=== PATIENT | female | born 1935 | race Caucasian/White ===

== ENCOUNTER 2016-10-17 00:26 | Emergency (ER) | payer MEDICARE ==
[~2016-10-17] VITALS: Ht 162.6 cm; Wt 0.6 kg
[~2016-10-17 00:26] MED LIST: CITA20TA; [UNRECOGNIZED DRUG - CODE]; senna; tylenol #3
[2016-10-17 00:33] VITALS: BP 178/81; PULSE 77; RESP 17; O2SAT 98
--- NOTE | 2016-10-17 00:44 | ED.REPORT ---
HPI-Trauma Minor / Fall Date of Service October 17, 2016 ED Provider: Dr. Remberto Vivas M.D. An 80 year old female with a history of depression and breast cancer s/p right mastectomy presents to the ED accompanied by her family after a mechanical ground level fall onto her right arm just prior to arrival. The patient lightly hit her head on a cabinet but did not lose consciousness. She now reports right upper arm pain and right knee pain. The patient denies problems with ambulation , nausea, vomiting, headache, confusion, or other symptoms. Nursing Notes Stated Complaint: FELL ON RT ARM/PAIN Chief Complaint: Extremity Trauma Nursing Notes Reviewed: Yes Allergies: Coded Allergies: No Known Allergies (Verified , 11/07/15) Scheduled PRN Hydrocodone-Acetaminophen 5-325 mg (Hydrocodone-Acetaminophen 5-325 mg) 1 Each Tablet 1 TABLET PO Q4H PRN PRN For Pain Miscellaneous Medications ([tylenol #3]) ([senna]) Citalopram-Expunged Drug, Do Not Renew! (Citalopram-Expunged Drug, Do Not Renew! ) 20 Mg Tablet Dalteparin-Expunged Drug, Do Not Renew! (Fragmin-Expunged Drug, Do Not Renew!) 5 ,000 U/0.2 Disp.syrin General Time Seen by MD: 00:43 Chief Complaint Fall on outstretched hand Hx Obtained From: Patient Arrived By: Walk-in Onset Occurred: Just prior to arrival Symptom Duration: Since onset Caused by: Fall on ground Location: Arm right Knee right Quality: Painful Severity: Current: Moderate Severity: Maximum: Moderate Pertinent Negative: Relieved by nothing Context: Immunizations Unknown Recent Healthcare: No recent doctor visit Past Medical History Past Medical History Depression Right breast cancer Past Surgical History Appendectomy Hysterectomy Right mastectomy Tonsillectomy Left part hip Family History None reported Smoking History Never Smoker Social History Alcohol Use: 1-3 per day Other Social History: Good social support, Local resident Ambulatory Status Independent (Occasional cane use) Review of Systems Constitutional: Denies: Fever Respiratory: Denies: Non-productive cough, Shortness of breath Musculoskeletal: Reports: Extremity pain (Upper right arm), Joint pain (Right knee) Neurologic: Denies: Change LOC, Confusion, Headache, Problem walking Complete sys rev & neg: except as marked. GI: Denies: Nausea, Vomiting Physical Exam Initial Vital Signs Vital Signs (First) Date Time Temp Pulse Resp B/P Pulse Ox O2 Delivery O2 Flow Rate FiO2 10/17/16 00:33 36.1 77 17 178/81 98 10/17/16 02:54 Room Air Initial VS: Reviewed ENT: Conjunctiva normal, No scleral icterus Respiratory: No respiratory distress Skin: Warm, Dry Neurologic: Alert, Oriented Psychiatric: Mood/affect normal, Behavior normal General/Constitutional: Awake, Alert Head / Eyes: Atraumatic, Normocephalic Upper Extremity / MS: Neurologic intact, Vascular intact (Good distal pulses) Right Upper Arm: Positive: Tenderness present... (Over humerus) Lower Extremity / Pelvis / MS: Full range of motion Right Knee: Positive: Patella tender Trauma / Burn / Environmental: Positive: Abrasion (Right knee) Interpretation & Diagnostics X-Ray Interpretation Xray Interpretation: Proximal humerus fracture Study Performed: 2 View X-Ray Ordered: Humerus right Interpretation / Wet Read by: Wet read ED physician Xray Interpretation: Patellar fracture Study Performed: 3 View X-Ray Ordered: Knee right Re-Eval/Medical Decision Source of Hx: Old records Re-Evaluation/Progress : Time of Eval: 02:00 Patient Status: Condition improved Re-Evaluation/Progress Note: Discussed with patient x-ray results, diagnosis, and plan for discharge. Follow-up and return to the ER instructions given. Patient agrees with plan for care and all questions were addressed. Counseled Regarding: Diagnosis, Need for follow-up, When/why to return to ED Discharge & Departure Impression: Primary Impression: Humerus fracture Encounter type: initial encounter Fracture type: closed Laterality: right Additional Impression: Patellar fracture Encounter type: initial encounter Fracture type: closed Fracture alignment : nondisplaced Laterality: right Disposition: Home Discharge Condition All VS Reviewed: Yes Condition: Improved Patient Instructions: Arm Fracture in Adults (ED), Patellar Fracture (ED), Splint Care (ED) Additional Instructions: ED evaluation included interview exam and x-rays. You have a broken hurmeus at the shoulder and a broken kneecap. Wear a shoulder sling and knee immobilizer. Hydrocodone/apap as needed for pain- watch out for constipation on this med. Follow up with orthopedics in 3-5 days, call for an appointment. Referrals: Luis Eduardo Benjamin Attestation Portions of this note were transcribed by Doris Saab. I, Dr. Vivas, personally performed the history, physical exam, and medical decision-making; I reviewed and confirmed the accuracy of the information in the transcribed note. Signed by: Jhonatan Blankenship, 10/17/2016, 02:45 copies to: Luis Eduardo Benjamin DO; Ravi Gonzalez MD, Donald L MD October 17, 2016 00:43 DORIS SAAB October 17, 2016 00:48
[2016-10-17] MEDS ORDERED: _HYDROcodone/APAP 5-325 mg Tablet PO PRN (02:05)
[2016-10-17] MEDS ORDERED: HYDR-4003 PO (02:12)
[2016-10-17 02:54] VITALS: BP 160/78; PULSE 72; RESP 16; O2SAT 99
--- NOTE | 2016-10-17 09:09 | DRSVH ---
PROCEDURE: X-RAY RIGHT KNEE, THREE VIEWS ([id number]) INDICATIONS: fall arm and knee pain TECHNIQUE: 3 views of the knee were acquired. COMPARISON: None. FINDINGS: Bones: Minimally displaced lateral patellar fracture. Minimal hypertrophic changes noted throughout the knee. Soft tissues: Small joint effusion. No suspicious soft tissue calcifications. IMPRESSION: Minimally displaced lateral patellar fracture. Dictated by: Jose G JARRETT Interpreted: Jeanine Kyle MD on 10/17/2016 at 9:08 Transcribed by: MEENA on 10/17/2016 at 9:08 Approved by: Jeanine Kyle M.D. on 10/17/2016 at 17:02
--- NOTE | 2016-10-17 09:10 | DRSVH ---
PROCEDURE: X-RAY RIGHT HUMERUS, MINIMUM TWO VIEWS ([id number]) INDICATIONS: fall arm and knee pain TECHNIQUE: 2 views of the humerus were acquired. COMPARISON: None. FINDINGS: Bones: Mildly displaced fracture extending through the greater tuberosity of the proximal right humer us. Mild acromioclavicular glenohumeral joint degeneration. Soft tissues: No suspicious soft tissue calcifications. IMPRESSION: Proximal right humeral head fracture. Dictated by: Jose G JARRETT Interpreted: Jeanine Kyle MD on 10/17/2016 at 9:09 Transcribed by: MEENA on 10/17/2016 at 9:09 Approved by: Jeanine Kyle M.D. on 10/17/2016 at 17:02
== END 2016-10-17 02:55 | disposition home or self-care (01) ==
LOC: SED 00:26
DX: S42.291A Other displaced fracture of upper end of right humerus, initial encounter for closed fracture (principal); S82.091A Other fracture of right patella, initial encounter for closed fracture; W19.XXXA Unspecified fall, initial encounter; Y93.01 Activity, walking, marching and hiking; Y99.8 Other external cause status; Y92.019 Unspecified place in single-family (private) house as the place of occurrence of the external cause; Z85.3 Personal history of malignant neoplasm of breast; Z90.11 Acquired absence of right breast and nipple; Z90.710 Acquired absence of both cervix and uterus

== ENCOUNTER 2016-11-15 18:12 | Observation (INO) | payer MEDICARE ==
[~2016-11-15] VITALS: Ht 163.8 cm; Wt 60.2 kg
[~2016-11-15 18:12] MED LIST changes: +HYDR-4003 PO
[2016-11-15 18:17] VITALS: BP 155/88; PULSE 91; RESP 15; O2SAT 96
[2016-11-15 19:05] VITALS: BP 140/72; PULSE 93; RESP 21; O2SAT 96
[2016-11-15] MEDS ORDERED: ACET325T51 PO (19:10)
[2016-11-15] MEDS ORDERED: PARO30TA75 PO (19:10)
--- NOTE | 2016-11-15 19:19 | ED.REPORT ---
HPI-General Illness Date of Service November 15, 2016 ED Provider: Remberto Vivas MD 80 y/o female with a hx of anxiety and depression presents to the ED complaining of intermittent dizziness, onset 2 weeks ago. The pt states the dizziness is the worst when she sits up after lying down for a while. Associated sx include intermittent vertigo that lasts a few minutes, frontal headache and sudden "garbled speech" that lasted 20 minutes 10 days ago. She states she was talking to her son on the phone when she began mumbling and was using "wrong syllables". She has not experienced similar change in speech since. She denies slurred speech, facial droop, dysphagia and weakness. The pt states she fell 4 weeks ago and hit her head along with injuring her patella and right shoulder. She has been been experiencing dizziness since.Today, she says she feels significantly better with minimal dizziness. She has no hx of TIA. The pt denies taking Aspirin or any cholesterol medication. Code Status: Full treatment DNR Nursing Notes Stated Complaint: EPISODE OF FUMBLED SPEECH,DIZZINESS Chief Complaint: Neuro Symptoms/ Deficits Nursing Notes Reviewed: Yes Allergies: Coded Allergies: No Known Allergies (Verified , 11/07/15) Scheduled Acetaminophen/Diphenhydramine (Tylenol Pm Ex-Strength Caplet) 500 Mg-25 Mg Tablet 1 EACH PO HS Paroxetine (Paxil) 30 Mg Tablet 30 MG PO QAM Scheduled PRN Acetaminophen (Acetaminophen) 325 Mg Tablet 650 MG PO Q4H PRN PRN For Pain Hydrocodone-Acetaminophen 5-325 mg (Hydrocodone-Acetaminophen 5-325 mg) 1 Each Tablet 1 TABLET PO HS PRN PRN For Pain General Time Seen by MD: 19:17 Chief Complaint Dizziness Hx Obtained From: Patient Arrived By: Walk-in Sudden in Onset?: No Onset Occurred: More than a week ago... (2 weeks) Context of Onset: Other (Fall 4 weeks ago) Symptom Duration: Intermittent Location: : Head Quality: Painful Severity: Current: Mild Severity: Maximum: Mild Recent Healthcare: Recent doctor visit Similar Sx Previous: No Past Medical History Past Medical History Anxiety Depression Right breast cancer x2 Chronic right shoulder pain Past Surgical History Appendectomy Hysterectomy Right mastectomy Tonsillectomy Left part hip Family History None reported Smoking History Never Smoker Social History Alcohol Use: 1-3 per day Other Social History: Good social support, Local resident Ambulatory Status Independent Review of Systems Reports: intermittent vertigo Reports: 20 minutes of garbled speech 10 days ago Full Review of Systems Neurologic: Reports: Dizziness, Headache Complete sys rev & neg: except as marked. Physical Exam Vital Signs Vital Signs Date Time Temp Pulse Resp B/P Pulse Ox O2 Delivery O2 Flow Rate FiO2 11/15/16 19:05 93 21 140/72 96 Room Air 11/15/16 18:17 36.3 91 15 155/88 96 Room Air Initial VS: Reviewed Head / Eyes: Atraumatic, Normocephalic Neck: Full range of motion Skin: Warm, Dry, No cyanosis Neurologic: Alert, Oriented, Nonfocal General/Constitutional: Awake, Alert, No acute distress, Cooperative Head / Eyes: Atraumatic, Normocephalic, PERRL, EOMI Neck: Atraumatic, Full range of motion Neck Vascular: Positive: Carotid bruit L Respiratory / Chest: Atraumatic, Breath sounds NL, Breath sounds = bilat, No respiratory distress, No rales, No rhonchi, No wheezing Cardiovascular: Heart rate NL, Regular rhythm, Heart sounds NL, No gallop, No murmurs, No rubs Abdomen: Atraumatic, Soft, Non-tender, BS normoactive Upper Extremities Upper Extremity / MS: No deformity, Neurologic intact, Vascular intact Right Shoulder: Positive: Ecchymosis present (Right shoulder) Lower Extremity / Pelvis / MS: Atraumatic, Full range of motion, No deformity, Neurologic intact, Vascular intact Knee brace on right knee. Neurologic: Oriented X3, Speech NL, No motor deficits, No sensory deficits Cerebellar Dysfunction: Negative: Ataxia central, Ataxia peripheral No facial droop. Moving extremities spontaneously and with full power. Interpretation & Diagnostics Lab Results Interpretation Result Diagram: 11/15/16193411/15/161934 Test 11/15/16 19:35 11/15/16 20:06 White Blood Count 6.1th/mm3 (3.8-10.1) Red Blood Count 3.84mil/mm3 (3.90-5.20) Hemoglobin 11.5g/dL (12.0-15.6) Hematocrit 36.0% (35.0-46.0) Mean Corpuscular Volume 93.8fL (81-100) Mean Corpuscular Hemoglobin 29.9pg (27.0-35.0) Mean Corpuscular Hemoglobin Concent 31.9% (32.0-37.0) Red Cell Distribution Width 13.6% (12.3-15.4) Platelet Count 265bil/L (150-400) Neutrophils (%) (Auto) 68.9% (40-74) Lymphocytes (%) (Auto) 19.1% (14-46) Monocytes (%) (Auto) 8.6% (4-12) Eosinophils (%) (Auto) 3.1% (0-5) Basophils (%) (Auto) 0.3% (0-3) Sodium Level 140mEq/L (134-144) Potassium Level 3.9mEq/L (3.5-5.2) Chloride Level 99mEq/L (97-108) Carbon Dioxide Level 25mmol/L (18-29) Blood Urea Nitrogen 18mg/dL (8-27) Creatinine 0.64mg/dL (0.57-1.00) Estimat Glomerular Filtration Rate 127mL/min (>59) Glucose Level 113mg/dL (60-99) Calcium Level 9.3mg/dL (8.5-10.1) Total Bilirubin 0.2mg/dL (0.0-1.2) Aspartate Amino Transf (AST/SGOT) 21U/L (0-50) Alanine Aminotransferase (ALT/SGPT) 11U/L (0-32) Alkaline Phosphatase 104U/L (25-165) Total Protein 6.8g/dL (6.4-8.4) Albumin 3.4g/dL (3.4-5.0) Hold Truong Top Tube Received (Received) Urine Color Yellow (YELLOW) Urine Appearance Clear (CLEAR,HAZY) Urine pH 5.0 (5.0-8.0) Urine Specific [place] 1.028 (1.003-1.035) Urine Protein Tracemg/dL (NEG,TRACE) Urine Glucose (UA) Negativemg/dL (NEGATIVE) Urine Ketones Negativemg/dL (NEGATIVE) Urine Occult Blood Negative (NEGATIVE) Urine Nitrite Negative (NEGATIVE) Urine Bilirubin Negative (NEGATIVE) Urine Urobilinogen Normalmg/dL (NORMAL) Urine Leukocyte Esterase Trace (NEGATIVE) Urine RBC 0-2/hpf (0-2) Urine WBC 6-10/hpf (0-5) Urine Epithelial Cells Few/hpf (NONE-MOD) Urine Crystals Oxalic acid crystals (NONE Urine Bacteria Few/hpf (NONE-FEW) Urine Hyaline Casts Occasional/lpf (NONE) Urine Granular Casts None seen (NONE SEEN) Urine Waxy Casts None seen (NONE SEEN) Urine Red Blood Cell Casts None seen (NONE SEEN) Urine White Blood Cell Casts None seen (NONE SEEN) Urine Mucus Present (None Seen) Urine Trichomonas None seen (NONE SEEN) Urine Yeast None (NONE SEEN) Urinalysis Comment None Urine Culture Reflexed Indicated ECG Interpretation ECG Interpretation: Normal sinus rhtyhm. Rate 92. Left axis deviation Time: 22:03 Interpreted by: ED physician CT Head Interpretation IMPRESSION: No acute intracranial disease process. Dictated by: Adela Ling MD, PhD on 11/15/2016 at 19:47 Approved by: Adela Ling MD, PhD on 11/15/2016 at 19:50 Study: Head CT no contrast Interpretation / Wet Read by: Interpret - Radiologist Re-Eval/Medical Decision Med Decision/Clinical Course 80-year-old female presenting at the recommendation of her primary care provider 10 days after experiencing what sounds likely to have been a TIA. She is now neurologically intact and is noted to have a left-sided carotid bruit. The patient was given aspirin, noncontrast head CT is negative, will be admitted to the hospitalist service for TIA evaluation. Also had a complaint of vertigo, this is now resolved and history suggests benign paroxysmal positional vertigo Code Status: Full treatment DNR Time of Eval: 21:35 Patient Status: Condition improved Re-Evaluation/Progress Note: Rechecked pt. Discussed labs, imaging results, diagnosis and plan to admit. The pt understands and agrees with the plan. All questions answered. Consultation : Referral / Consult Name: Humberto Cunningham MD Consulted With: Hospitalist Requested Call at: 22:07 Furniture Repair Technician: Will see patient, Agrees with eval, Agrees with plan, Accepts admit Counseled Regarding: Diagnosis, Lab results, Need for admission Discharge & Departure Primary Impression: TIA (transient ischemic attack) Transient cerebral ischemia type: other Qualified Code: G45.8 - Other transient cerebral ischemic attacks and related syndromes Disposition: ADMITTED TO HOSPITAL Discharge Condition All VS Reviewed: Yes Referrals: Ravi Gonzalez MD (PCP) Scribe Attestation Portions of this note were transcribed by Adelaida Chris. I, , personally performed the history, physical exam and medical decision-making;I reviewed and confirmed the accuracy of the information in the transcribed note. Signed by Jhonatan Comer. 11/15/16 22:25 copies to: Ravi Gonzalez MD, Donald L MD November 15, 2016 19:19 Adelaida Chris November 15, 2016 19:26
[2016-11-15 19:46] LABS: BASOPHILS % (AUTO) 0.3 % (0-3); EOSINOPHILS % (AUTO) 3.1 % (0-5); MONOCYTES % (AUTO) 8.6 % (4-12); Mean Corpuscular Hemoglobin 29.9 pg (27.0-35.0); Mean Corpuscular Volume 93.8 fL (81-100); NEUTROPHILS % (AUTO) 68.9 % (40-74); Platelet Count 265 bil/L (150-400)
--- NOTE | 2016-11-15 19:52 | DRSVH ---
PROCEDURE: CT BRAIN WITHOUT CONTRAST ([id number]) INDICATIONS: episode of slurred speech TECHNIQUE: Noncontrast 4.5 mm thick angled axial sections acquired from the foramen magnum to the vertex, with c oronal reformats. COMPARISON: None. FINDINGS: Image quality: Excellent. CSF spaces: Basal cisterns are patent. No extra-axial fluid collections. The ventricles are symmet kwadwo in size and shape. Brain: No intracranial bleeds or masses. There is cerebral volume loss for age, with resultant vent ricular and sulcal prominence. There are periventricular and deep white matter chronic small vessel ischemic changes. There is intracranial internal carotid artery and vertebral artery atherosclerosis . Skull and face: Calvarium and visualized facial bones appear intact, without suspicious lesions. Sinuses: Visualized sinuses and mastoids are clear. IMPRESSION: No acute intracranial disease process. Dictated by: Adela Ling MD, PhD on 11/15/2016 at 19:47 Approved by: Adela Ling MD, PhD on 11/15/2016 at 19:50
[2016-11-15 20:51] LABS: APPEARANCE,URINE CLEAR (CLEAR,HAZY); COLOR,URINE YELLOW (YELLOW)
[2016-11-15 20:52] LABS: OCCULT BLOOD,URINE NEGATIVE (NEGATIVE); UROBILINOGEN,URINE NORMAL (NORMAL)
[2016-11-15] MEDS ORDERED: ACET-2605 PO (22:25)
[2016-11-15] MEDS ORDERED: HYDR-4003 PO (22:26)
[2016-11-15] MEDS ORDERED: Ondansetron 2 mg/mL 2 mL Inj IVPUSH PRN (22:30)
[2016-11-15] MEDS ORDERED: Polyethylene Glycol (PEG) 17 Gm Powder PO PRN (22:30)
[2016-11-15] MEDS ORDERED: Alum-Mag Hydrox-Simeth 30 mL Suspension PO PRN (22:30)
[2016-11-15 22:37] VITALS: BP 127/65; PULSE 97; RESP 16; O2SAT 96
[2016-11-15 22:42] VITALS: BP 127/65; PULSE 97; RESP 16; O2SAT 96
[2016-11-15 22:54] VITALS: BP 138/75; PULSE 87; RESP 18; O2SAT 95
[2016-11-15 23:09] VITALS: PULSE 90
[2016-11-15] MEDS ORDERED: HYDROcodone-APAP 5-325 mg Tablet PO PRN (23:25)
--- NOTE | 2016-11-15 23:25 | PCM.HPMED ---
Subjective Date of Service November 15, 2016 Primary Provider: Admitting Physician: Primary Care Physician: Ravi Gonzalez MD Attending Physician: History of Present Illness: Ms. Castelan is an 80-year-old female with past medical history of anxiety and depression who presents to the ED after being referred to the urgent care from her PCP secondary to intermittent dizziness 10 days. She was seen 10/17/2016 for a ground-level fall landing on her right knee and right arm, she does report striking her head against a door frame though denies LOC or any resultant neurologic deficits. She was seen at [facility] ED and was diagnosed with a right humerus fracture and a right patellar fracture. She followed up with orthopedics shortly thereafter without surgical intervention. Aside from right arm and right knee pain she reported no symptoms after this fall. On 2016 she was sitting in her arm chair in the company of her grandchild and son when they noticed she began to have garbled speech, described as transplanting words inappropriately into her sentences. She states that during this time she understood that she was not making sense and this frustrated her. During this event she reports a headache (the pain worse than her chronic headache pain which she has had for quite some time) but patient and patient's family who were present during the event report no facial, motor or neurological deficits. They gave her approximately 2 spoonfuls of peanut butter with resolution of symptoms. She does state that on the day of this event she had not had anything to eat with the exception of 2 oatmeal cookies approximately 8 hours prior to this event and she states she does have a history of hypoglycemic episodes though has never been diagnosed with anything. She specifically states that when she gets hypoglycemic she will have visual disturbances that feel like she is "swirling" with some dizziness. After this event 10 days ago she felt mostly better though does state she had some dizziness intermittently until approximately 2 days ago 11/13/2016. She called her PCP to get an appointment for this Monday regarding this event 10 days prior and was told to go to the urgent care who then referred her to the ED. Currently she is completely asymptomatic, denies abnormal headache, visual changes, shortness of breath, chest pain, abdominal pain, change in GI or symptoms, numbness or tingling in her extremities. A comprehensive review of systems was conducted with the patient and found to be negative except as above in the history of present illness. In the ED she received a CT brain noncontrast which showed no intracranial bleeds or masses. There is cerebral volume loss for age, with resultant ventricular and sulcal prominence. There are periventricular and deep white matter chronic small vessel ischemic changes. There is intracranial internal carotid artery and vertebral artery atherosclerosis. EKG showed a Normal sinus rhtyhm with rate of 92 and a left axis deviation. Urinalysis reports WBC 6-10 with trace leukocyte esterase, culture indicated Review of Systems: Pertinent positives as noted in HPI. All other systems were reviewed and are negative Allergies Coded Allergies: No Known Allergies (Verified , 11/07/15) Home Medications Acetaminophen (Acetaminophen) 325 Mg Tablet 650 MG PO Q4H PRN PRN For Pain Hydrocodone-Acetaminophen 5-325 mg (Hydrocodone-Acetaminophen 5-325 mg) 1 Each Tablet 1 TABLET PO HS PRN PRN For Pain PMH Anxiety Depression Right breast cancer x2 Chronic right shoulder pain Surgical History Appendectomy Hysterectomy Right mastectomy Tonsillectomy Left part hip Family History None reported Social History Hx Alcohol Use: Yes (DAILY 2 OZ OF "SPIRITS") Hx Substance Use: No Hx Tobacco Use: No Smoking Status: Never Smoker Exam Vital Signs Vital Sign - Last Date Time Temp Pulse Resp B/P Pulse Ox O2 Delivery O2 Flow Rate FiO2 11/15/16 19:05 93 21 140/72 96 Room Air 11/15/16 18:17 36.3 Exam General: Sitting up in bed in no acute distress, well-developed, well-nourished , appropriately interactive HEENT: Normocephalic, atraumatic. External ears without defect. Pupils equal, round, and reactive to light and accommodation. Anicteric sclerae, moist conjunctivae, and no lid lag. Oropharynx free of erythema and cobble stoning with moist mucosa. Neck: Supple with full range of motion. No jugular venous distension. Left carotid bruit Cardiovascular: Regular rate and rhythm with no murmurs, rubs, or gallops appreciated Pulmonary: Clear to auscultation bilaterally with no crackles, wheezes, or rhonchi. Normal respiratory effort with no use of accessory muscles. Abdomen: Bowel tones present. Soft, nontender, nondistended. Extremities: Upper and lower extremities neurologically vascular intact. Right upper extremity ecchymotic extending to right shoulder, right lower extremity with knee brace in place Skin: Normal temperature, turgor, and texture Neurological: Cranial nerves grossly intact. Walks with cane. No facial droop. Moving all extremities spontaneously, no deficits noted Psychiatric: Normal mood and affect. Alert and oriented to person, place, and time. Lab and Diagnostics Result Diagram: 11/15/16193411/15/161934 X-Rays, CTs and MRIs . CT BRAIN WITHOUT CONTRAST IMPRESSION: No acute intracranial disease process. Dictated by: Adela Ling MD, PhD on 11/15/2016 at 19:47 Assessment & Plan Ms. Castelan is an 80-year-old female with past medical history of anxiety and depression admitted for intermittent dizziness followed by TIA like symptoms 10 days prior. Possible TIA, not present on admission. Presumed stable - CT brain noncontrast showed no acute intracranial process - Patient currently asymptomatic - MR stroke protocol ordered for tomorrow 11/16/2016 Right humeral and patellar fracture. Present admission. Ongoing - Hydrocodone when necessary for pain Depression. Present admission. Ongoing - Continue home Paxil Anxiety. Present admission. Ongoing - Continue home Paxil Patient admitted under observational status for MR stroke protocol tomorrow Discussed Code status: with Pt and her wish is to be DNR/DNI Pain Evaluation: Adequate Pain Control GI Prophylaxis: H2 pam VTE Prophylaxis: Sub-Q Heparin (Unfractionated) Resuscitation Status: DNR/DNI:Do Not Resuscitate/Intubate Attending Statement The patient was seen and examined together with Dr. Alcala on 11/15 and I agree with the history, exam and plan as outlined in the note above. CHANEL ALCALA DO November 15, 2016 22:18 Humberto Cunningham MD November 16, 2016 03:50
[2016-11-15] MEDS: Heparin 5,000 Unit/mL Inj SUBQ SCH (23:37)
--- NOTE | 2016-11-16 05:33 | NUR ---
Admit: Pt arrived to room 3028 around 2300 from ED via stretcher, ambulated self to scale and bed using cane; son at bedside for about 30 minutes. Pt AOx3, neuro's intact, vitals stable. Pt wearing brace on L knee due to recent fx; refusing to wear sling on L arm stating "after 4 weeks this thing should be fine by now". Pt c/o pain x1 upon arrival, slept most of the night, pleasant and cooperative with care. Admit completed by admit SERGE Bateman in ED.
[2016-11-16 05:45] VITALS: BP 151/77; PULSE 83; RESP 18; O2SAT 97
[2016-11-16] MEDS: Heparin 5,000 Unit/mL Inj SUBQ SCH (08:27)
[2016-11-16] MEDS ORDERED: PARoxetine 20 mg Tablet PO SCH (08:30)
[2016-11-16 09:24] VITALS: PULSE 75
--- NOTE | 2016-11-16 09:31 | NUR ---
Social Work: Initial Assessment Data: Pt is an 80 y/o female admitted for TIA. Pt's PCP is Dr Gonzalez, pt's insurance is Medicare. EMR reviewed. Readmit score not listed. RUBY ON RAILS ENGINEER met with pt at bedside, role explained. Pt states she lives alone in [place] in a two story home but she remains on the first floor currently. Her grand-nephew is staying with her to assist her. Pt reports she uses a cane, drives, has hx of HH, no hx of SNF, no LTC or VA benefits and is not a caregiver. Pt states she has been up and independent in the room. No d/c planning needs anticipated at this time. RUBY ON RAILS ENGINEER will continue to follow if needs arise. Assessment: Pt who is independent at baseline. Plan: Pt will d/c home via POV when medically stable. No d/c planning needs anticipated at this time. RUBY ON RAILS ENGINEER will continue to follow if needs arise. CLAUDIA Patel Addendum: 11/16/16 at 0933 by BETSEY CARRANZA Amended: Links added.
[2016-11-16 09:32] VITALS: BP 159/65; PULSE 80; RESP 18; O2SAT 97
--- NOTE | 2016-11-16 10:17 | NUR ---
Case Management: LUIS and Medicare Part D pamphlet delivered and explained. Original LUIS placed in chart. Copy left at bedside. Betzaida Lovelace RN
--- NOTE | 2016-11-16 12:08 | DRSVH ---
PROCEDURE: MRI STROKE PROTOCOL ([id number]) Pre- and post-contrast brain MRI, non-contrast brain MR angiogram, pre- and postcontrast neck MR michel ogram INDICATIONS: CVA/TIA SX 10 days prior TECHNIQUE: Brain: Noncontrast axial T1 spin echo, axial T2 fast spin echo, sagittal and axial FLAIR, coronal T2 fast spin echo, axial gradient echo, axial diffusion and ADC through the brain. After the administr ation of contrast, axial 3D VIBE of the cranial vasculature and brain. Brain MRA: Non-contrast 3-D time of flight MR angiogram, with multiple mttszah-yiiwvigwu-ykusctwkmg (MIP) reformats performed. Neck MRA: Axial and sagittal TruFISP through the neck. Coronal dynamic MR angiogram during administ ration of contrast in the arterial and venous phases, with 3-dimenstional qxgggao-facacyyrs-grnryygir n (MIP) reformats constructed from subtraction images. COMPARISON: None. FINDINGS: Image quality: Excellent. BRAIN: CSF spaces: Ventricles are normal in size and shape. Basal cisterns are patent. No extra-axial flu id collections. Brain: No intracranial bleeds or mass effects. Age-related involutional changes and volume loss. Sca ttered bilateral white matter signal changes statistically age related chronic microvascular ischemic disease although nonspecific. Peralta-white matter interface is normal. Diffusion weighted images show no acute ischemic insults. Brainstem appears normal. Normal intravascular flow voids are present. No abnormal intracranial enhancement. Skull and face: Calvarial marrow signal is normal. Orbits appear normal. Sinuses: Sinuses and mastoids are clear. BRAIN MR ANGIOGRAM: Anterior circulation: Intracranial internal carotid arteries are normal in size and enhancement. Th e flow within the paired anterior cerebral arteries is normal and symmetric. The flow within the mid dle cerebral arteries is normal and symmetric. The anterior communicating artery is seen. No stenos es, occlusions, or aneurysms. Posterior circulation: The visualized portions of the vertebral arteries demonstrate normal caliber, and join to form a normal appearing basilar artery. The flow within the posterior cerebral arteries is normal and symmetric. No stenoses, occlusions, or aneurysms. NECK MR ANGIOGRAM: Carotids: Great vessels demonstrate a conventional anatomy as they arise from the aortic arch. The origins of the common carotid arteries appear patent. The calibers and courses of both common caroti d arteries are normal. The bifurcation regions appear normal bilaterally. Minimal percent focal sten osis of the right internal carotid artery origin. No left ICA stenosis seen. Posterior circulation: The origins of the vertebral arteries are not well-seen although probably pat ent. Dominant right vertebral artery. Diffuse narrowing or atresia of the left vertebral artery. Nor mal appearing basilar artery. Miscellaneous: Subclavian arteries appear patent. Pre-contrast images through the neck show no soft tissue abnormalities. IMPRESSION: BRAIN MRI: No evidence of acute ischemia. Bilateral scattered white matter signal changes, statistically chronic microvascular ischemic disease . BRAIN MR ANGIOGRAM: No focal stenosis or occlusion NECK MR ANGIOGRAM: Minimal 10% focal stenosis at the origin of the right internal carotid artery. No left ICA stenosis. The estimate of stenosis included in the report of the imaging study was calculated using the NASCET method Dictated by: Evaristo Le M.D. on 11/16/2016 at 12:00 Approved by: Evaristo Le M.D. on 11/16/2016 at 12:06
--- NOTE | 2016-11-16 13:20 | PCM.DIMED ---
Discharge Instructions Date of Service November 16, 2016 Dates of Hospitalization November 15, 2016 at 22:31 Discharge Diagnosis Discharge Diagnosis Possible TIA Diet Discharge Diet: Low fat, Low Sodium Activity Discharge Activity: No restrictions Patient Instructions Follow-up with PCP in: 1 week Arcelia Howard MD November 16, 2016 13:20
[2016-11-16] MEDS ORDERED: ASPI-973 PO (13:22)
--- NOTE | 2016-11-16 13:25 | PCM.DC.MED ---
Discharge Summary Date of Service November 16, 2016 Dates of Hospitalization Date of Hospital Admission November 15, 2016 at 22:31 Date of Discharge: November 16, 2016 Providers: Admitting Physician: Humberto Cunningham MD Primary Care Physician: Ravi Gonzalez MD Attending Physician: Humberto Cunningham MD Diagnosis at Time of Discharge Diagnosis at Time of Discharge Possible TIA Procedures XRay, CTs & MRIs . CT BRAIN WITHOUT CONTRAST IMPRESSION: No acute intracranial disease process. Dictated by: Adela Ling MD, PhD on 11/15/2016 at 19:47 Brief History Ms. Castelan is an 80-year-old female with past medical history of anxiety and depression who presents to the ED after being referred to the urgent care from her PCP secondary to intermittent dizziness 10 days. She was seen 10/17/2016 for a ground-level fall landing on her right knee and right arm, she does report striking her head against a door frame though denies LOC or any resultant neurologic deficits. She was seen at [facility] ED and was diagnosed with a right humerus fracture and a right patellar fracture. She followed up with orthopedics shortly thereafter without surgical intervention. Aside from right arm and right knee pain she reported no symptoms after this fall. On 2016 she was sitting in her arm chair in the company of her grandchild and son when they noticed she began to have garbled speech, described as transplanting words inappropriately into her sentences. She states that during this time she understood that she was not making sense and this frustrated her. During this event she reports a headache (the pain worse than her chronic headache pain which she has had for quite some time) but patient and patient's family who were present during the event report no facial, motor or neurological deficits. They gave her approximately 2 spoonfuls of peanut butter with resolution of symptoms. She does state that on the day of this event she had not had anything to eat with the exception of 2 oatmeal cookies approximately 8 hours prior to this event and she states she does have a history of hypoglycemic episodes though has never been diagnosed with anything. She specifically states that when she gets hypoglycemic she will have visual disturbances that feel like she is "swirling" with some dizziness. After this event 10 days ago she felt mostly better though does state she had some dizziness intermittently until approximately 2 days ago 11/13/2016. She called her PCP to get an appointment for this Monday regarding this event 10 days prior and was told to go to the urgent care who then referred her to the ED. Currently she is completely asymptomatic, denies abnormal headache, visual changes, shortness of breath, chest pain, abdominal pain, change in GI or symptoms, numbness or tingling in her extremities. A comprehensive review of systems was conducted with the patient and found to be negative except as above in the history of present illness. In the ED she received a CT brain noncontrast which showed no intracranial bleeds or masses. There is cerebral volume loss for age, with resultant ventricular and sulcal prominence. There are periventricular and deep white matter chronic small vessel ischemic changes. There is intracranial internal carotid artery and vertebral artery atherosclerosis. EKG showed a Normal sinus rhtyhm with rate of 92 and a left axis deviation. Urinalysis reports WBC 6-10 with trace leukocyte esterase, culture indicated Hospital Course Possible TIA, not present on admission (patient reports it was 10 days prior to admit). Presumed stable - CT brain noncontrast showed no acute intracranial process - Patient currently asymptomatic - MR stroke protocol done 11/16/2016 and no significant abnormalities - begin ASA 81 mg daily - discussed statin therapy, she prefers to wait and discuss this with PCP Right humeral and patellar fracture. Present admission. Ongoing - Hydrocodone when necessary for pain - encouraged her to wear sling - has ortho follow up in 2 weeks Depression. Present admission. Ongoing - Continue home Paxil Anxiety. Present admission. Ongoing - Continue home Paxil Patient admitted under observational status for MR stroke protocol the following day Code status: her wish is to be DNR/DNI Exam Vital Signs (Last) Date Time Temp Pulse Resp B/P Pulse Ox O2 Delivery O2 Flow Rate FiO2 11/16/16 09:32 36.6 80 18 159/65 97 Room Air Test 11/15/16 19:35 11/15/16 20:06 White Blood Count 6.1th/mm3 (3.8-10.1) Red Blood Count 3.84mil/mm3 (3.90-5.20) Hemoglobin 11.5g/dL (12.0-15.6) Hematocrit 36.0% (35.0-46.0) Mean Corpuscular Volume 93.8fL (81-100) Mean Corpuscular Hemoglobin 29.9pg (27.0-35.0) Mean Corpuscular Hemoglobin Concent 31.9% (32.0-37.0) Red Cell Distribution Width 13.6% (12.3-15.4) Platelet Count 265bil/L (150-400) Neutrophils (%) (Auto) 68.9% (40-74) Lymphocytes (%) (Auto) 19.1% (14-46) Monocytes (%) (Auto) 8.6% (4-12) Eosinophils (%) (Auto) 3.1% (0-5) Basophils (%) (Auto) 0.3% (0-3) Sodium Level 140mEq/L (134-144) Potassium Level 3.9mEq/L (3.5-5.2) Chloride Level 99mEq/L (97-108) Carbon Dioxide Level 25mmol/L (18-29) Blood Urea Nitrogen 18mg/dL (8-27) Creatinine 0.64mg/dL (0.57-1.00) Estimat Glomerular Filtration Rate 127mL/min (>59) Glucose Level 113mg/dL (60-99) Calcium Level 9.3mg/dL (8.5-10.1) Total Bilirubin 0.2mg/dL (0.0-1.2) Aspartate Amino Transf (AST/SGOT) 21U/L (0-50) Alanine Aminotransferase (ALT/SGPT) 11U/L (0-32) Alkaline Phosphatase 104U/L (25-165) Total Protein 6.8g/dL (6.4-8.4) Albumin 3.4g/dL (3.4-5.0) Hold Truong Top Tube Received (Received) Urine Color Yellow (YELLOW) Urine Appearance Clear (CLEAR,HAZY) Urine pH 5.0 (5.0-8.0) Urine Specific Stanton 1.028 (1.003-1.035) Urine Protein Tracemg/dL (NEG,TRACE) Urine Glucose (UA) Negativemg/dL (NEGATIVE) Urine Ketones Negativemg/dL (NEGATIVE) Urine Occult Blood Negative (NEGATIVE) Urine Nitrite Negative (NEGATIVE) Urine Bilirubin Negative (NEGATIVE) Urine Urobilinogen Normalmg/dL (NORMAL) Urine Leukocyte Esterase Trace (NEGATIVE) Urine RBC 0-2/hpf (0-2) Urine WBC 6-10/hpf (0-5) Urine Epithelial Cells Few/hpf (NONE-MOD) Urine Crystals Oxalic acid crystals (NONE Urine Bacteria Few/hpf (NONE-FEW) Urine Hyaline Casts Occasional/lpf (NONE) Urine Granular Casts None seen (NONE SEEN) Urine Waxy Casts None seen (NONE SEEN) Urine Red Blood Cell Casts None seen (NONE SEEN) Urine White Blood Cell Casts None seen (NONE SEEN) Urine Mucus Present (None Seen) Urine Trichomonas None seen (NONE SEEN) Urine Yeast None (NONE SEEN) Urinalysis Comment None Urine Culture Reflexed Indicated Discharge Medications Discharge Medications Acetaminophen/Diphenhydramine (Tylenol Pm Ex-Strength Caplet) 500 Mg-25 Mg Tablet 1 EACH PO HS (Reported) Aspirin (Aspirin) 81 Mg Tablet 81 MG PO DAILY Prescribed by: ERIC SOFIA MD Paroxetine (Paxil) 30 Mg Tablet 30 MG PO QAM (Reported) As needed Acetaminophen (Acetaminophen) 325 Mg Tablet 650 MG PO Q4H PRN PRN For Pain ( Reported) Hydrocodone-Acetaminophen 5-325 mg (Hydrocodone-Acetaminophen 5-325 mg) 1 Each Tablet 1 TABLET PO HS PRN PRN For Pain (Reported) Followup Plan Discharge Diet: Low fat, Low Sodium Discharge Activity: No restrictions Follow-up with PCP in: 1 week Eric Sofia MD November 16, 2016 13:25
[2016-11-16 13:28] VITALS: BP 131/65; PULSE 67; RESP 18; O2SAT 97
--- NOTE | 2016-11-16 14:17 | NUR ---
Social Work-discharge: Data:EMR reviewed. Pt is on day 1 of hospitalization for TIA per H&P. pt is medically stable for discharge. Pt's family to provide transport home. Per RN notes, pt has been up independent in her room. No discharge needs identified. All updated and agreeable to plan. Assessment:Pt who is independent at baseline. Plan:Pt to discharge home today via POV. No discharge needs identified. All updated and agreeable to plan. CLAUDIA Ravi
--- NOTE | 2016-11-16 15:14 | NUR ---
Evaluation completed. Please go to "Notes" then click on "Assessments and Notes" (bottom left corner of screen). Then select appropriate discipline tab on top of screen.
--- NOTE | 2016-11-16 15:41 | NUR ---
Discharge Left floor and is discharged to go home via w/c with all belongings at 1538 with family and NAC. Discharge instructions and medication/problem list information provided and discussed. Pt understands and is comfortable with plan of care.
== END 2016-11-16 15:37 | disposition home or self-care (01) ==
LOC: SED 18:12 → MPC 22:31
PROVIDERS: ADMIT Hospitalist; ATTEND Hospitalist
DX: R47.81 Slurred speech (principal); R51 Headache; R42 Dizziness and giddiness; G45.9 Transient cerebral ischemic attack, unspecified; F41.8 Other specified anxiety disorders; S42.301D Unspecified fracture of shaft of humerus, right arm, subsequent encounter for fracture with routine healing; S82.001D Unspecified fracture of right patella, subsequent encounter for closed fracture with routine healing; M25.511 Pain in right shoulder; Z85.3 Personal history of malignant neoplasm of breast; Z79.82 Long term (current) use of aspirin; Z66 Do not resuscitate
CPT/HCPCS: 36415; 70450; 70549; 70553; 80053; 81000; 85025; 87086; 93005; 97162; 99285; A9585; G0378; J1644